=== PATIENT | female | born 1965 | race Caucasian/White ===

== ENCOUNTER → 2018-07-18 | Day surgery (SDC) | payer OTHER ==
[2018-07-14 12:35] LABS: BASOPHILS # (AUTO) 0.1 (0.0-0.1); BASOPHILS % 0.6 % (0.0-1.0); EOSINOPHILS # (AUTO) 0.3 (0.0-0.4); HEMATOCRIT 42.1 % (34.2-44.1); HEMOGLOBIN 13.5 g/dL (12.0-16.0); LYMPHOCYTES # (AUTO) 3.9 (1.0-3.2); LYMPHOCYTES % 29.4 % (18.0-39.1); MEAN CORPUSCULAR HEMOGLOBIN 27.4 pg (28-32); MEAN CORPUSCULAR HGB CONC 32.1 g/dL (31-35); MEAN CORPUSCULAR VOLUME 85.4 fL (81-99); MONOCYTES # (AUTO) 0.7 (0.2-0.8); NEUTROPHILS # (AUTO) 8.4 (2.1-6.9); NEUTROPHILS % 62.7 % (38.7-80.0); PLATELET COUNT 389 x10e3/uL (140-360); RED BLOOD COUNT 4.93 x10e6/uL (3.6-5.1); RED CELL DISTRIBUTION WIDTH 13.1 % (11.7-14.4)
[2018-07-14 12:57] LABS: ALANINE AMINOTRANSFERASE 23 IU/L (0-55); ALBUMIN 3.4 g/dL (3.5-5.0); ALKALINE PHOSPHATASE 150 IU/L (40-150); ANION GAP 15.7 mmol/L (8-16); BLOOD UREA NITROGEN 9 mg/dL (7-26); BUN/CREATININE RATIO 11 (6-25); CALCIUM 9.6 mg/dL (8.4-10.2); CARBON DIOXIDE 24 mmol/L (22-29); CHLORIDE 101 mmol/L (98-107); CREATININE, SERUM 0.82 mg/dL (0.57-1.11); EST GLOMERULAR FILTRATION RATE > 60 ML/MIN (60-); GLUCOSE 268 mg/dL (74-118); POTASSIUM 3.7 mmol/L (3.5-5.1); SODIUM 137 mmol/L (136-145)
[~2018-07-18] MED LIST: ACETAMINOPHEN 1000 MG/100 ML IV ONE; BUPIVACAINE HCL 0.5% INJ 30 ML VIAL INJ ONE; CEFAZOLIN SOD 2 GM/D5W 50ML 50 ML IV ONE; DEXAMETHASONE SOD PHOS INJ 4 MG/ML VIAL ONE; DEXILANT60 MG PO; FENTANYL CITRATE/PF 100MCG/2 ML INJ ONE; GABAPENTIN300 MG PO; HYDROMORPHONE 2MG/ML 2 MG/ML ML ONE; INSULIN REGULAR, HUMAN 100 UNIT/1 ML 3ML VIAL ONE; KRISTALOSE20 GM PO; LIDOCAINE HCL 2% LOCAL INJ 5 ML SDV VIAL INJ ONE; LIPITOR20 MG PO; LISINOPRIL2.5 MG PO; METFORMIN HCL500 MG PO; MIDAZOLAM HCL 2 MG/2 ML VIAL ONE; NIACOR500 MG PO; ONDANSETRON HCL INJ 2MG/ML 2ML 2 MG/ML VIAL ONE; PROPOFOL IV EMULSION 10 MG/ML 20 ML VIAL ONE; REGLAN10 MG PO; ROCURONIUM BROMIDE 10 MG/ML 5ML VIAL ONE; SEVOFLURANE INHAL SOLN 250 ML PEN BTL ONE; TRULANCE PO; TRULICITY INJ; ULTRAM50 MG PO
--- OUTSIDE RECORDS SUMMARY | 2018-07-18 07:08 | XMS REPORT | Clinical Summary ---
Author Author [facility] Organization [facility] Address Unknown Phone Unavailable Care Team Providers Care Psychiatric Clinician Name Role Phone Ayden Michaud MD PCP Allergies Comments Active Allergy Reactions Severity Noted Date Beeswax 10/22/2017 Medications End Date Status Medication Sig Dispensed Refills Start Date Active ergocalciferol (VITAMIN Take 50,000 0 D2) 50,000 unit capsule Units by mouth once a week. Takes om Tuesday Active atorvastatin (LIPITOR) 20 Take 20 mg by 0 MG tablet mouth nightly. Default OP ins Active metFORMIN (GLUCOPHAGE) Take 2,000 mg 0 500 mg tablet by mouth nightly. Active gabapentin (NEURONTIN) Take 300 mg 0 300 mg capsule by mouth nightly. Active dexlansoprazole Take 60 mg by 0 (DEXILANT) 60 mg capsule mouth daily. TAKE IN THE MORNING Active methocarbamol (ROBAXIN) TAKE 1 TABLET 90 tablet 0 500 MG tablet BY MOUTH FOUR 9 TIMES DAILY 10/25/2017 Discontinued lisinopril Take 5 mg by 0 (PRINIVIL,ZESTRIL) 5 mg mouth tablet nightly. 11/24/2017 lisinopril Take 4 30 tablet 0 (PRINIVIL,ZESTRIL) 5 mg tablets (20 8 tablet mg total) by mouth nightly for 30 days. 11/08/2017 HYDROcodone-acetaminophen Take 1 tablet 0 (NORCO) 10-325 mg per by mouth 8 tablet every 6 (six) hours as needed for severe pain for up to 14 days. Max Daily Amount: 4 tablets 11/24/2017 glimepiride (AMARYL) 1 MG Take 1 tablet 30 tablet 0 tablet (1 mg total) 8 by mouth daily before breakfast for 30 days. 11/14/2017 traMADol (ULTRAM) 50 mg Take 1 tablet 40 tablet 0 tablet (50 mg total) 8 by mouth every 4 (four) hours as needed for moderate pain for up to 20 days. 11/24/2017 cyclobenzaprine Take 1 tablet 30 tablet 0 (FLEXERIL) 5 mg tablet (5 mg total) 8 by mouth 3 (three) times a day as needed for muscle spasms for up to 30 days. 12/14/2017 traMADol (ULTRAM) 50 mg Take 1 tablet 70 tablet 0 tabletIndications: Left (50 mg total) 8 wrist pain by mouth every 4 (four) hours as needed for moderate pain for up to 30 days. 12/14/2017 cyclobenzaprine Take 1 tablet 60 tablet 0 (FLEXERIL) 5 mg (5 mg total) 8 tabletIndications: Left by mouth 3 wrist pain (three) times a day as needed for muscle spasms for up to 30 days. 01/18/2018 Discontinued traMADol (ULTRAM) 50 mg Take 1 tablet 40 tablet 0 tabletIndications: Left (50 mg total) 8 wrist pain, Left elbow by mouth pain every 6 (six) hours as needed for moderate pain for up to 30 days. 01/18/2018 Discontinued methocarbamol (ROBAXIN) Take 1 tablet 90 tablet 0 500 MG tabletIndications: (500 mg 8 Left wrist pain, Left total) by elbow pain mouth 4 (four) times a day for 30 days. 02/17/2018 traMADol (ULTRAM) 50 mg Take 1 tablet 40 tablet 0 tabletIndications: Left (50 mg total) 8 wrist pain, Left elbow by mouth pain every 6 (six) hours as needed for moderate pain for up to 30 days. 02/17/2018 methocarbamol (ROBAXIN) Take 1 tablet 90 tablet 0 500 MG tabletIndications: (500 mg 8 Left wrist pain, Left total) by elbow pain mouth 4 (four) times a day for 30 days. 03/10/2018 traMADol (ULTRAM) 50 mg Take 1 tablet 40 tablet 0 tabletIndications: Left (50 mg total) 8 wrist pain by mouth every 6 (six) hours as needed for moderate pain for up to 30 days. 03/31/2018 methocarbamol (ROBAXIN) Take 1 tablet 90 tablet 0 500 MG tabletIndications: (500 mg 8 Right wrist pain total) by mouth 4 (four) times a day for 30 days. 03/31/2018 traMADol (ULTRAM) 50 mg Take 1 tablet 40 tablet 0 tabletIndications: Right (50 mg total) 8 wrist pain by mouth every 6 (six) hours as needed for moderate pain for up to 30 days. 05/12/2018 traMADol (ULTRAM) 50 mg Take 1 tablet 40 tablet 0 tablet (50 mg total) 8 by mouth every 6 (six) hours as needed for moderate pain for up to 30 days. 05/20/2018 traMADol (ULTRAM) 50 mg Take 1 tablet 40 tablet 0 tablet (50 mg total) 8 by mouth every 6 (six) hours as needed for moderate pain for up to 30 days. 06/07/2018 Discontinued methocarbamol (ROBAXIN) Take 1 tablet 90 tablet 0 500 MG tablet (500 mg 9 total) by mouth 4 (four) times a day for 23 days. 07/14/2018 traMADol (ULTRAM) 50 mg Take 1 tablet 40 tablet 0 tablet (50 mg total) 9 by mouth every 6 (six) hours as needed for moderate pain for up to 30 days. 07/14/2018 methocarbamol (ROBAXIN) Take 1 tablet 90 tablet 0 500 MG tablet (500 mg 9 total) by mouth 4 (four) times a day for 30 days. 07/15/2018 traMADol (ULTRAM) 50 mg Take 1 tablet 40 tablet 0 tablet (50 mg total) 9 by mouth every 6 (six) hours as needed for moderate pain for up to 30 days. Active Problems Problem Noted Date Closed fracture of left distal radius and ulna 10/21/2017 Bilateral carpal tunnel syndrome Encounters Care Team Description Date Type Specialty Sammy Gaitan MD 07/05/2018 Refill Orthopedic Surgery Sammy Gaitan MD Left wrist pain (Primary Dx) 06/14/2018 Office Visit Orthopedic Surgery Sammy Gaitan MD 06/07/2018 Refill Orthopedic Surgery Alisa Lopez MA 05/17/2018 Orders Only Orthopedic Surgery Sammy Gaitan MD Left wrist pain (Primary Dx) 05/03/2018 Office Visit Orthopedic Surgery Alisa Lopez MA 04/20/2018 Orders Only Orthopedic Surgery Alisa Lopez MA 04/12/2018 Orders Only Orthopedic Surgery Sammy Gaitan MD Right wrist pain (Primary Dx) 03/01/2018 Office Visit Orthopedic Surgery Alisa Lopez MA Left wrist pain (Primary Dx) 02/08/2018 Orders Only Orthopedic Surgery Sammy Gaitan MD Left wrist pain (Primary Dx); Left elbow pain; Closed fracture of distal ends of left radius and ulna, initial encounter 01/18/2018 Office Visit Orthopedic Surgery Sammy Gaitan MD Left wrist pain (Primary Dx); Left elbow pain; Numbness and tingling in left upper extremity; Closed fracture of distal ends of left radius and ulna, initial encounter 12/21/2017 Office Visit Orthopedic Surgery Sammy Gaitan MD Left wrist pain (Primary Dx); Closed fracture of distal ends of left radius and ulna, initial encounter 11/14/2017 Office Visit Orthopedic Surgery Sammy Gaitan MD Left hand pain (Primary Dx); Closed fracture of distal ends of left radius and ulna, initial encounter 11/02/2017 Office Visit Orthopedic Surgery Barbie Alcantar MD 10/24/2017 Anesthesia Orthopedic Surgery Event Sammy Gaitan MD ORIF, FRACTURE, RADIUS, DISTAL 10/24/2017 Surgery Orthopedic Surgery Rehrer, DO Daryl Foote Joseph M., MD Closed fracture of distal ends of left radius and ulna, initial encounter (Primary Dx) 10/21/2017 Hospital Orthopedic Surgery - Encounter 10/25/2017 after 07/17/2017 Family History Medical History Relation Name Comments Cancer Father Heart disease Mother Arthritis Sister Relation Name Status Comments Father Mother Sister Social History Date Tobacco Use Types Packs/Day Years Used Former Smoker Cigarettes Smokeless Tobacco: Former User Alcohol Use Drinks/Week oz/Week Comments No Sex Assigned at Date Recorded Not on file Industry Job Start Date Occupation Not on file Not on file Not on file Travel End Travel History Travel Start No recent travel history available. Last Filed Vital Signs Time Taken Vital Sign Reading 10/25/2017 9:12 AM CDT Blood Pressure 162/52 10/25/2017 9:12 AM CDT Pulse 96 10/25/2017 7:21 AM CDT Temperature 37.5 C (99.5 F) 10/25/2017 7:21 AM CDT Respiratory Rate 18 10/25/2017 9:12 AM CDT Oxygen Saturation 95% - Inhaled Oxygen - Concentration 10/21/2017 5:37 PM CDT Weight 83.9 kg (185 lb) 10/21/2017 5:37 PM CDT Height 154.9 cm (5' 1") 10/21/2017 5:37 PM CDT Body Mass Index 34.96 Plan of Treatment Health Maintenance Due Date Last Done Comments CERVICAL CANCER SCREENING 1986 BREAST CANCER SCREENING 2015 COLON CANCER SCREENING 2015 SHINGLES VACCINES (#1) 2015 INFLUENZA VACCINE 11/23/2017 Implants Device Identifier Shelf Expiration Date Model / Serial / Lot Implanted Type 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 [id number] / / Bone Screw T8 Full Thread 2.7mm / IPM Left: Wrist TOMAS L12mm - [id number] [employer] Implanted: Qty: 3 on 10/24/2017 by DEVICES Sammy Nathan MD [id number] / / Bone Screw T8 Full Thread 2.7mm / IPM Left: Wrist TOMAS L18mm - [id number] [employer] Implanted: Qty: 1 on 10/24/2017 by DEVICES Sammy Nathan MD [id number] / / Locking Screw T8 Full Thread 2.7mm IPM Left: Wrist TOMAS / L16mm - [id number] [employer] Implanted: Qty: 2 on 10/24/2017 by DEVICES Sammy Nathan MD [id number] / / Locking Screw T8 Full Thread 2.7mm IPM Left: Wrist TMOAS / L18mm - [id number] [employer] Implanted: Qty: 1 on 10/24/2017 by DEVICES Sammy Nathan MD [id number] / / Locking Screw T8 Full Thread 2.7mm IPM Left: Wrist TOMAS / L20mm - [id number] [employer] Implanted: Qty: 1 on 10/24/2017 by DEVICES Sammy Nathan MD [id number] / / Locking Screw T8 Full Thread 2.7mm IPM Left: Wrist TOMAS / L22mm - [id number] [employer] Implanted: Qty: 1 on 10/24/2017 by DEVICES Sammy Nathan MD [id number] / / Volar Dr Plate Narrow Left 8 Holes IPM Left: Wrist TOMAS Extrashort - [id number] [employer]PLANT [employer] Implanted: Qty: 1 on 10/24/2017 by DEVICES Sammy Nathan MD [id number] / / Wire K [id number] [employer] - Orthopedic Left: Wrist TOMAS [id number] Trauma [employer]TH[employer] Implanted: Qty: 2 on 10/24/2017 by Implants Sammy Nathan MD Procedures Comments Procedure Name Priority Date/Time Associated Diagnosis EMG Routine 12/30/2017 Numbness and tingling in 11:26 AM CDT left upper extremity POC GLUCOSE Routine 10/25/2017 11:41 AM CDT POC GLUCOSE Routine 10/25/2017 7:14 AM CDT ZZESTIMATED GFR Routine 10/25/2017 4:30 AM CDT BASIC METABOLIC PANEL Routine 10/25/2017 4:30 AM CDT HC COMPLETE BLD COUNT Routine 10/25/2017 W/AUTO DIFF 4:30 AM CDT POC GLUCOSE Routine 10/24/2017 9:17 PM CDT POC GLUCOSE Routine 10/24/2017 5:20 PM CDT WV AN ELECTIVE Routine 10/24/2017 SUPRAGLOTTIC AIRWAY 2:53 PM CDT Procedure Note - Nixon Silva CRNA - 10/24/2017 2:53 PM CDT Airway Performed by: NIXON SILVA Authorized by: BARBIE ALCANTAR Location: OR Urgency: Elective Difficult Airway: No Resident/C RNA/AA: NIXON SILVA Performed by: resident/C RNA/AA Preoxygena yahir with 100% O2: Yes Mask Ventilatio n: Not attempted Final Airway Type: Supraglott ic airway Final LMA: I-Gel LMA Size: 4 Number of Attempts at Approach: 1 Pt. Preoxygena yahir for 3 minutes. Eyes taped closed after induction. iGel #4 placed atraumatic ally and secured. No leak at 15 cmH2O positive pressure. +ETCO, + bilateral breath sounds. ORIF, FRACTURE, RADIUS, 10/24/2017 Closed fracture of distal DISTAL 1:30 PM CDT ends of left radius and ulna, initial encounter POC GLUCOSE Routine 10/24/2017 1:15 PM CDT POC GLUCOSE Routine 10/24/2017 8:21 AM CDT TYPE AND SCREEN Routine 10/24/2017 5:15 AM CDT PARTIAL THROMBOPLASTIN Routine 10/24/2017 TIME (PTT) 5:15 AM CDT PROTHROMBIN TIME WITH INR Routine 10/24/2017 5:15 AM CDT HC COMPLETE BLD COUNT Routine 10/24/2017 W/AUTO DIFF 5:15 AM CDT ZZESTIMATED GFR Routine 10/24/2017 5:10 AM CDT BASIC METABOLIC PANEL Routine 10/24/2017 5:10 AM CDT POC GLUCOSE Routine 10/23/2017 10:01 PM CDT POC GLUCOSE Routine 10/23/2017 4:35 PM CDT POC GLUCOSE Routine 10/23/2017 12:16 PM CDT POC GLUCOSE Routine 10/23/2017 7:21 AM CDT POC GLUCOSE Routine 10/22/2017 9:30 PM CDT POC GLUCOSE Routine 10/22/2017 5:04 PM CDT POC GLUCOSE Routine 10/22/2017 11:31 AM CDT POC GLUCOSE Routine 10/22/2017 8:51 AM CDT ECG PRE/POST OP Routine 10/22/2017 8:26 AM CDT HEMOGLOBIN A1C Routine 10/22/2017 7:15 AM CDT HC COMPLETE BLD COUNT Routine 10/22/2017 W/AUTO DIFF 7:15 AM CDT ZZESTIMATED GFR Routine 10/22/2017 7:07 AM CDT MAGNESIUM LEVEL Routine 10/22/2017 7:07 AM CDT BASIC METABOLIC PANEL Routine 10/22/2017 7:07 AM CDT THYROID STIMULATING Routine 10/22/2017 HORMONE 6:30 AM CDT XR WRIST 3+ VW LEFT STAT 10/21/2017 8:11 PM CDT ZZESTIMATED GFR STAT 10/21/2017 6:53 PM CDT BASIC METABOLIC PANEL STAT 10/21/2017 6:53 PM CDT PARTIAL THROMBOPLASTIN STAT 10/21/2017 TIME (PTT) 6:53 PM CDT PROTHROMBIN TIME WITH INR STAT 10/21/2017 6:53 PM CDT HC COMPLETE BLD COUNT STAT 10/21/2017 W/AUTO DIFF 6:53 PM CDT XR ELBOW 2 VW LEFT STAT 10/21/2017 6:46 PM CDT XR WRIST 3+ VW LEFT STAT 10/21/2017 6:46 PM CDT XR FOREARM 2 VW LEFT STAT 10/21/2017 6:45 PM CDT WV APPLY FOREARM Routine 10/21/2017 SPLINT,STATIC 5:54 PM CDT WV CLOSED RX DIST Routine 10/21/2017 RAD/ULNA FX,MANIPUL 5:54 PM CDT WV APPLY FOREARM Routine 10/21/2017 SPLINT,STATIC 5:54 PM CDT WV MODERATE SEDATJ SAME Routine 10/21/2017 PHYS/QHP 5/>YRS INIT 30 5:54 PM CDT MIN after 07/17/2017 Results * EMG General Request (12/30/2017 11:26 AM CDT) Impressions Performed At The patient has numbness in the left hand and has had a prior fracture. She comes in for an EMG study. 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 [facility] Department of Neurology [place] [address] Office: [phone] Narrative Performed At NERVE CONDUCTION AND ELECTROMYOGRAPHY REPORT [facility] Medicine [facility]-[address] Floor; [place], [place] [address]; Name: Lidia Prescott Date of Procedure: 12/30/17 Sex: female Date of : 1965 Referring Physician: Marielle Gaitan MD Ht: 5 foot 1Wt: 175 Temp:33/32.4 Nerve Conduction(Latencies in msec, Amplitudes uV, Distance cm, Velocity M/Sec) Right Motor Nerves Dist. Lat. Prox lat. D. amp. P. Amp.Dist. Velocity Right Median3.67.38.8 8.819 51 Right Ulnar (below elb) Right Ulnar (across elb) Right Radial Right Median F Wave 37.3 Right Ulnar F Wave Right Sensory Nerves Dist. Lat. Prox lat. Dist. amp. Prox Amp. Distance Velocity Right Median Palmar 2.4 53 8.0 Right Median Digital 3.2 16.7 13.0 Right Ulnar11.0 Right Super. Radial 10.0 Left Motor Nerves Dist. Lat. Prox lat. D. amp. P. Amp.Dist. Velocity Left Median4.47.84.3 4.320 59 Left Ulnar (below elb) 2.84.76.2 6.210.5 55 Left Ulnar (across elb) 7.2 6.213 52 Left Radial2.96.64.5 4.025 68 Left Median F Wave 25 Left Ulnar F Wave 36.2 Left Sensory Nerves Dist. Lat. Prox lat. Dist. amp. Prox Amp. Distance Velocity Left Median Palmar 2.8* 19.3 8.0 Left Median Digital 3.6 6.7 13.0 Left Ulnar3.0 16.3 11.0 Left Super. Radial 2.8 21 10.0 Electromyography (Motor Unit in mV; H=High; L=Low; P=Polyphasic; NS=Non-specific) Left ArmFibs. Pos. Waves Fasc. PolyphasiaMotor UnitsRecruitment Deltoid wnl wnlwnl wnlwnlwnl Biceps wnl wnlwnl wnlwnlwnl Triceps wnl wnlwnl wnlwnlwnl Brachioradialis wnl wnlwnl wnlwnlwnl lst D. Interosseous wnl wnlwnl wnlwnlwnl Abd. Pollicus b. wnl wnlwnl wnlwnllve * POC glucose (10/25/2017 11:41 AM CDT) Only the most recent of 14 results within the time period is included. POC glucose 205 (H) 65 - 99 mg/dL [facility] DEPARTMENT OF Comment: PATHOLOGY AND [facility] Notified RN GENOMIC MEDICINE Meter ID: [id number] Job Honer: Agapito Randle Address City/State/Zipcode Phone Number [facility] DEPARTMENT OF [address] [place] [address] PATHOLOGY AND GENOMIC MEDICINE * Estimated GFR (10/25/2017 4:30 AM CDT) Only the most recent of 4 results within the time period is included. GFR Non Af Amer >90 mL/min/1.73 m2 [facility] DEPARTMENT OF PATHOLOGY AND GENOMIC MEDICINE GFR Af Amer >90 mL/min/1.73 m2 [facility] DEPARTMENT OF Comment: PATHOLOGY AND Chronic kidney disease: <60 GENOMIC MEDICINE mL/min/1.73m2 Kidney failure: <15 mL/min/1.73m2 The estimated GFR is calculated from the IDMS-traceable Modification of Diet in Renal Disease Equation. The accuracy of the calculation is poor when the creatinine is normal. Calculated values >90 mL/min/1.73m2 are not reported. This equation has not been validated in children (<18 years), women, the elderly (>70 years), or ethnic groups other than Caucasians and Americans. Specimen Plasma specimen Performing Organization Address City/State/Zipcode Phone Number [facility] DEPARTMENT OF [address] [place] [address] PATHOLOGY AND GENOMIC MEDICINE * CBC with platelet and differential (10/25/2017 4:30 AM CDT) Only the most recent of 4 results within the time period is included. WBC 13.36 (H) 4.50 - 11.00 k/uL [facility] DEPARTMENT OF PATHOLOGY AND GENOMIC MEDICINE RBC 4.12 (L) 4.20 - 5.50 m/uL [facility] DEPARTMENT OF PATHOLOGY AND GENOMIC MEDICINE HGB 11.7 (L) 12.0 - 16.0 g/dL [facility] DEPARTMENT OF PATHOLOGY AND GENOMIC MEDICINE HCT 35.9 (L) 37.0 - 47.0 % [facility] DEPARTMENT OF PATHOLOGY AND GENOMIC MEDICINE MCV 87.1 82.0 - 100.0 fL [facility] DEPARTMENT OF PATHOLOGY AND GENOMIC MEDICINE MCH 28.4 27.0 - 34.0 pg [facility] DEPARTMENT OF PATHOLOGY AND GENOMIC MEDICINE MCHC 32.6 31.0 - 37.0 g/dL [facility] DEPARTMENT OF PATHOLOGY AND GENOMIC MEDICINE RDW - SD 41.0 37.0 - 55.0 fL [facility] DEPARTMENT OF PATHOLOGY AND GENOMIC MEDICINE MPV 10.8 8.8 - 13.2 fL [facility] DEPARTMENT OF PATHOLOGY AND GENOMIC MEDICINE Platelet count 328 150 - 400 k/uL [facility] DEPARTMENT OF PATHOLOGY AND GENOMIC MEDICINE Nucleated RBC 0.00 /100 WBC [facility] DEPARTMENT OF PATHOLOGY AND GENOMIC MEDICINE Neutrophils 63.1 39.0 - 69.0 % [facility] DEPARTMENT OF PATHOLOGY AND GENOMIC MEDICINE Lymphocytes 25.4 25.0 - 45.0 % [facility] DEPARTMENT OF PATHOLOGY AND GENOMIC MEDICINE Monocytes 9.1 0.0 - 10.0 % [facility] DEPARTMENT OF PATHOLOGY AND GENOMIC MEDICINE Eosinophils 1.6 0.0 - 5.0 % [facility] DEPARTMENT OF PATHOLOGY AND GENOMIC MEDICINE Basophils 0.5 0.0 - 1.0 % [facility] DEPARTMENT OF PATHOLOGY AND GENOMIC MEDICINE Immature granulocytes 0.3Comment: "Immature 0.0 - 1.0 % [facility] DEPARTMENT OF granulocytes" (promyelocytes, PATHOLOGY AND myelocytes, metamyelocytes) GENOMIC MEDICINE Specimen Blood Performing Organization Address [facility] [place] [address] PATHOLOGY AND [employer] MEDICINE * Basic metabolic panel (10/25/2017 4:30 AM CDT) Only the most recent of 4 results within the time period is included. Sodium 140 135 - 148 mEq/L [facility] DEPARTMENT OF PATHOLOGY AND GENOMIC MEDICINE Potassium 3.2 (L) 3.5 - 5.0 mEq/L [facility] DEPARTMENT OF PATHOLOGY AND GENOMIC MEDICINE Chloride 98 98 - 112 mEq/L [facility] DEPARTMENT OF PATHOLOGY AND GENOMIC MEDICINE CO2 29 24 - 31 mEq/L [facility] DEPARTMENT OF PATHOLOGY AND GENOMIC MEDICINE Anion gap 13@ANIO 7 - 15 mEq/L [facility] DEPARTMENT OF PATHOLOGY AND GENOMIC MEDICINE BUN 10 6 - 20 mg/dL [facility] DEPARTMENT OF PATHOLOGY AND GENOMIC MEDICINE Creatinine 0.6 0.5 - 0.9 mg/dL [facility] DEPARTMENT OF PATHOLOGY AND GENOMIC MEDICINE Glucose 122 (H) 65 - 99 mg/dL [facility] DEPARTMENT OF PATHOLOGY AND GENOMIC MEDICINE Calcium 8.9 8.3 - 10.2 mg/dL [facility] DEPARTMENT OF PATHOLOGY AND GENOMIC MEDICINE Specimen Plasma specimen Performing Organization Address [facility] [place] [facility] DEPARTMENT [place] [phone] PATHOLOGY AND [employer] MEDICINE * Partial thromboplastin time, activated (10/24/2017 5:15 AM CDT) Only the most recent of 2 results within the time period is included. PTT 33.5 23.0 - 36.0 sec [facility] DEPARTMENT OF Comment: PATHOLOGY AND PTT therapeutic range for [facility] MEDICINE unfractionated heparin is 61.0-112.0 seconds which corresponds to Anti-Xa 0.3-0.7 U/ml. Specimen Blood Performing Organization Address City/[facility] [place] [address] PATHOLOGY AND [employer] MEDICINE * Prothrombin time with INR (10/24/2017 5:15 AM CDT) Only the most recent of 2 results within the time period is included. Prothrombin time 12.5 12.0 - 15.0 sec [facility] DEPARTMENT OF PATHOLOGY AND GENOMIC MEDICINE INR 0.9 [facility] DEPARTMENT OF Comment: PATHOLOGY AND The International Normalized [facility] MEDICINE Ratio (INR) is a therapeutic monitoring tool for patients who are stable on oral anticoagulant therapy. An INR of 2.0-3.0 is suggested for deep vein thrombosis/pulmonary embolism. Specimen Blood Performing Organization Address City/[facility] Phone Number [facility] DEPARTMENT OF [address] [place] [address] PATHOLOGY AND GENOMIC MEDICINE * Type and screen (10/24/2017 5:15 AM CDT) ABO grouping O [facility] DEPARTMENT OF PATHOLOGY AND GENOMIC MEDICINE Rh type POS [facility] DEPARTMENT OF PATHOLOGY AND GENOMIC MEDICINE Antibody screen (gel) NEG [facility] DEPARTMENT OF PATHOLOGY AND GENOMIC MEDICINE Specimen Blood Performing Organization Address [facility] Phone Number [facility] DEPARTMENT [place] [phone] PATHOLOGY AND GENOMIC MEDICINE * ECG Pre/Post Op (10/22/2017 8:26 AM CDT) Ventricular rate 86 [facility] M[facility] Atrial rate 86 [facility] MUSE WV interval 174 [facility] QRSD interval 86 [facility] QT interval 400 [facility] QTC interval 478 [facility] MUSE P axis 1 57 [facility] QRS axis 1 -15 [facility] MUSE T wave axis 23 [facility]USE EKG impression Normal sinus rhythm-Normal [facility] ECG-No previous ECGs available- Performing Organization Address City/[facility]/Zipcode Phone Number [facility] MUSE [address] [place] [phone] * Hemoglobin A1c (10/22/2017 7:15 AM CDT) Hemoglobin A1C 8.1 (H) 4.0 - 5.6 % [facility] DEPARTMENT OF Comment: PATHOLOGY AND HbA1c cutoffs for diagnosing GENOMIC MEDICINE diabetes: 4.0% - 5.6%=normal 5.7% - 6.4%=increased risk for diabetes (prediabetes) >=6.5%=diabetes Goals for glycemic control (ADA 2016) < 7.0%Target for non adults with diabetes. More or less stringent targets may be appropriate for individual patients. <7.5% Target for Children and adolescents with type 1 diabetes. Specimen Blood Performing Organization Address City/[facility]/Zipcode Phone Number [facility] [place] [address] PATHOLOGY AND GENOMIC MEDICINE * Magnesium level (10/22/2017 7:07 AM CDT) Magnesium 1.6 1.6 - 2.6 mg/dL [facility] DEPARTMENT OF PATHOLOGY AND GENOMIC MEDICINE Specimen Plasma specimen Performing Organization Address [facility]ercode Phone Number [facility] [place] [address] PATHOLOGY AND GENOMIC MEDICINE * Thyroid stimulating hormone (10/22/2017 6:30 AM CDT) TSH 2.07 0.27 - 4.20 uIU/mL [facility] DEPARTMENT OF PATHOLOGY AND GENOMIC MEDICINE Specimen Plasma specimen Performing Organization Address [facility] [place] Number [facility] [place] [address] PATHOLOGY AND [facility] MEDICINE * XR Wrist 3+ Vw Left (10/21/2017 8:11 PM CDT) Only the most recent of 2 results within the time period is included. Narrative Performed At EXAMINATION:XR WRIST 3VW LEFT RADIANT CLINICAL HISTORY:Post-reduction COMPARISON:To previous study from 1815 hours IMPRESSION: A markedly comminuted fracture of the distal radial metaphysis and epiphysis has been partially reduced. Styloid chip fracture is present. Overlying plaster splint is present. [facility]-[id number] Procedure Note Interface, Radiology Results Incoming - 10/21/2017 8:27 PM CDT EXAMINATION: XR WRIST 3 VW LEFT CLINICAL HISTORY: Post-reduction COMPARISON: To previous study from 1815 hours IMPRESSION: A markedly comminuted fracture of the distal radial metaphysis and epiphysis has been partially reduced. Styloid chip fracture is present. Overlying plaster splint is present. [facility]-[id number] Performing Organization Address [facility] Centercode Phone Number RADIANT [address] [place] [address] * XR Elbow 2 Vw Left (10/21/2017 6:46 PM CDT) Narrative Performed At Procedure:XR ELBOW 2 VW LEFT RADIANT REFERRING PHYSICIAN: RICHARD JOSEPH REHRER HISTORY:fall COMPARISON: None FINDINGS: No evidence of fracture or dislocation is seen. The joint spaces are maintained. No osteolytic or osteoblastic lesion is identify. Regional soft tissue is unremarkable. No radiopaque foreign body is seen. XR ELBOW 2 VW LEFTacquired. IMPRESSION: No radiographic evidence of acute fracture or dislocation of the left elbow. [id number] Procedure Note Interface, Radiology Results Incoming - 10/21/2017 6:52 PM CDT Procedure:XR ELBOW 2 VW LEFT REFERRING PHYSICIAN: RICHARD RUIZ REHRER HISTORY: fall COMPARISON: None FINDINGS: No evidence of fracture or dislocation is seen. The joint spaces are maintained. No osteolytic or osteoblastic lesion is identify. Regional soft tissue is unremarkable. No radiopaque foreign body is seen. XR ELBOW 2 VW LEFT acquired. IMPRESSION: No radiographic evidence of acute fracture or dislocation of the left elbow. [id number] Performing Organization Address [facility] Centercoky Phone Number QuirkyANT [address] [place] [address] * XR Forearm 2 Vw Left (10/21/2017 6:45 PM CDT) Narrative Performed At EXAMINATION: RADIANT XR FOREARM 2 VW LEFT CLINICAL HISTORY: fall COMPARISON: None. FINDINGS: A comminuted, mostly transverse, distal radial fracture seen. Dorsal displacement with volar angulation of the major fracture fragments is seen. A longitudinal component extends intra-articularly. There is minimal separation of the articular surfaces. The ulnar styloid is fractured at its base. Carpal bones are intact. IMPRESSION: Comminuted fracture the distal radius with associated ulnar styloid fracture.. [id number] Procedure Note Interface, Radiology Results Incoming - 10/21/2017 6:53 PM CDT EXAMINATION: XR FOREARM 2 VW LEFT CLINICAL HISTORY: fall COMPARISON: None. FINDINGS: A comminuted, mostly transverse, distal radial fracture seen. Dorsal displacement with volar angulation of the major fracture fragments is seen. A longitudinal component extends intra-articularly. There is minimal separation of the articular surfaces. The ulnar styloid is fractured at its base. Carpal bones are intact. IMPRESSION: Comminuted fracture the distal radius with associated ulnar styloid fracture.. [id number] Performing Organization Address [facility] Centercode Phone Number QuirkyANT [address] [place] [address] * ED MODERATE PROCEDURAL SEDATION (10/21/2017 5:54 PM CDT) Narrative Performed At [place] Joseph Saucedo DO 10/23/2017 11:14 PM Procedural Sedation (Moderate/Deep) Performed by: RICHARD SAUCEDO Authorized by: RICHARD SAUCEDO Consent: Consent obtained:Written Consent given by:Patient Risks discussed:Allergic reaction, dysrhythmia, inadequate sedation, nausea, vomiting, respiratory compromise necessitating ventilatory assistance and intubation, prolonged sedation necessitating reversal and prolonged hypoxia resulting in organ damage [place] protocol: Procedure explained and questions answered to patient or proxy's satisfaction: yes Relevant documents present and verified: yes Test results available and properly labeled: yes Imaging studies available: yes Required blood products, implants, devices, and special equipment available: yes Site/side marked: yes Immediately prior to procedure a time out was called: yes Patient identity confirmation method:Arm band Indications: Sedation purpose:Fracture reduction Pre-sedation assessment: ASA classification: class 1 - normal, healthy patient Neck mobility: normal Mouth openin or more finger widths Thyromental distance:4 finger widths Mallampati score:I - soft palate, uvula, fauces, pillars visible Pre-sedation assessment completed:10/21/2017 7:48 PM Immediate pre-procedure details: Reassessment: Patient reassessed immediately prior to procedure Reviewed: vital signs, relevant labs/tests and NPO status Verified: bag valve mask available, emergency equipment available, intubation equipment available, IV patency confirmed, oxygen available and reversal medications available Procedure details (see MAR for exact dosages): Sedation start time:10/21/2017 7:47 PM Preoxygenation:Nasal cannula Sedation medications:Ketamine and propofol Sedation level: DEEP sedation Intra-procedure monitoring:Blood pressure monitoring, continuous capnometry, frequent LOC assessments, frequent vital sign checks, continuous pulse oximetry and monitoring manager Intra-procedure events: none Reversal agents:None required Sedation end time:10/21/2017 7:53 PM Post-procedure details: Attendance: Constant attendance by certified staff until patient recovered Recovery: Patient returned to pre-procedure baseline Respiratory status:Room air Patient tolerance:Tolerated well, no immediate complications * SPLINT APPLICATION (10/21/2017 5:54 PM CDT) Narrative Performed At [place] Joseph Saucedo DO 10/23/2017 11:14 PM Splint Application Performed by: RICHARD SAUCEDO Authorized by: RICHARD SAUCEDO Consent: Consent obtained:Written Consent given by:Patient Risks discussed:Discoloration, numbness, pain and swelling Alternatives discussed:No treatment [place] protocol: Procedure explained and questions answered to patient or proxy's satisfaction: yes Relevant documents present and verified: yes Imaging studies available: yes Site/side marked: yes Immediately prior to procedure a time out was called: yes Patient identity confirmed:Arm band, hospital-assigned identification number and verbally with patient Pre-procedure details: Sensation:Normal Skin color:Normal Procedure details: Laterality:Left Location:Wrist Wrist:L wrist Splint type:Volar short arm Supplies:Plaster, cotton padding and elastic bandage Post-procedure details: Pain:Improved Sensation:Normal Patient tolerance of procedure:Tolerated well, no immediate complications * ORTHOPEDIC INJURY TREATMENT (10/21/2017 5:54 PM CDT) Narrative Performed At Richardvic Saucedo DO 10/23/2017 11:14 PM Orthopedic Injury Treatment Performed by: RICHARD SAUCEDO Authorized by: RICHARD SAUCEDO Consent: Consent obtained:Written and verbal Consent given by:Patient Risks discussed:Nerve damage, pain and vascular damage Alternatives discussed:No treatment [place] protocol: Procedure explained and questions answered to patient or proxy's satisfaction: yes Relevant documents present and verified: yes Imaging studies available: yes Site/side marked: yes Immediately prior to procedure, a time out was called: yes Patient identity confirmed:Arm band, hospital-assigned identification number and verbally with patient Injury: Injury location:Forearm Forearm injury location:L forearm Forearm fracture type: distal radial Forearm fracture type comment:Distal ulna Pre-procedure assessment: Neurological function: normal Distal perfusion: normal Range of motion: reduced Sedation: Sedation type:Deep Anesthesia (see MAR for exact dosages): Anesthesia method:None Procedure details: Manipulation performed: yes Reduction successful: yes X-ray confirmed reduction: yes Immobilization:Splint Splint type:Volar short arm Supplies used:Plaster, elastic bandage and cotton padding Post-procedure assessment: Neurological function: normal Distal perfusion: normal Range of motion: improved Patient tolerance of procedure:Tolerated well, no immediate complications after 07/17/2017 Insurance Payer Benefit Subscriber ID Type Phone Address Plan / Group [facility] xxxxxxxxx HMO/PPO THCARE CHOICE/CHO ICE + Advance Directives Patient has advance care planning documents on file. For more information, stan reddy contact: [place] [address] [place] [address]
[2018-07-18 11:00] VITALS: BP 137/75
--- NOTE | 2018-07-18 15:33 | Operative Report ---
DATE OF PROCEDURE: 07/18/2018 SURGEON: Ayden Carlson MD PREOPERATIVE DIAGNOSIS: Chronic cholecystitis. POSTOPERATIVE DIAGNOSIS: Chronic cholecystitis. PROCEDURES: Diagnostic laparoscopy, laparoscopic cholecystectomy. DIGITAL FORENSICS EXAMINER: None. ANESTHESIA: General endotracheal. INDICATIONS AND FINDINGS: The patient is a 53-year-old female, who presented with complaints of right upper quadrant abdominal pain. Workup revealed abnormal HIDA scan with ejection fraction of 60%. At surgery, gallbladder was somewhat distended with changes of cholesterolosis. Cystic duct was about 2 mm in diameter. Common bile duct was about 5 mm in diameter. Liver had changes of fatty infiltration, stomach, lower abdomen all appeared normal. TECHNIQUE: After adequate general endotracheal anesthesia with the patient in supine position, the abdomen was prepped and draped in sterile fashion with ChloraPrep solution. Skin in the umbilicus was infiltrated with 0.5% Marcaine. Incision was made in the umbilicus. Abdominal wall was elevated and Veress needle was introduced. Pneumoperitoneum was then created. A 10-mm trocar and cannula were then passed through the umbilical wound. Laparoscopic camera was introduced. Initial laparoscopy revealed some adhesions in the midline involving omentum. Liver had changes of fatty infiltration. A 10-mm trocar and cannula were placed in the epigastrium and two 5 mm trocars and cannulas placed in right upper quadrant. These were placed under direct vision. The fundus of the gallbladder was grasped, retracted superiorly. Neck of the gallbladder was grasped, retracted laterally. Peritoneum over the neck of the gallbladder was incised. The gallbladder cystic duct junction was dissected free. Cystic artery was also dissected free. The neck of the gallbladder was completely dissected free. Cystic artery was divided between hemoclips close to the gallbladder. Cystic duct was also divided between hemoclips with three clips being left on the common bile duct side. The gallbladder was dissected free from the liver using scissors and electrocautery. Once it was entirely free, it was placed into an Endopouch and brought out through the epigastric cannula. There were no stones palpable. Gallbladder bed was inspected for hemostasis, which was seen to be adequate. It was irrigated with saline. All fluid aspirated, inspected for hemostasis, which was seen to be adequate. Instruments and cannulas were then removed. Pneumoperitoneum was evacuated. Wounds were then closed. Fascia in the umbilical and epigastric wound closed with 0 Vicryl. Skin at all wounds closed with rashmi. Sterile dressings were applied to each wound. The patient tolerated the procedure well. Estimated blood loss was 10 mL. There were no complications. All counts were correct. The patient was taken to the recovery room in satisfactory condition. MD MERARI [place]/MODL /[id number] cc: Ayden De La Garza MD
== END | disposition home or self-care (01) ==
LOC: OR 07:06
PROVIDERS: ATTEND Surgery
DX: K81.1 Chronic cholecystitis (principal); I10 Essential (primary) hypertension; E11.9 Type 2 diabetes mellitus without complications; Z01.810 Encounter for preprocedural cardiovascular examination; Z01.812 Encounter for preprocedural laboratory examination; Z79.84 Long term (current) use of oral hypoglycemic drugs
CPT/HCPCS: 36415 ×2; 47562; 80053; 82948; 85025; 88304; 93005; J0131; J0690; J1100; J1170; J2001; J2250; J2405; J2704

== ENCOUNTER 2024-05-23 17:21 | Inpatient (IN) | payer BC, OTHER ==
[~2024-05-23] VITALS: Ht 154.9 cm; Wt 79.4 kg
[~2024-05-23 17:21] MED LIST changes: -ACETAMINOPHEN 1000 MG/100 ML IV ONE; -BUPIVACAINE HCL 0.5% INJ 30 ML VIAL INJ ONE; -CEFAZOLIN SOD 2 GM/D5W 50ML 50 ML IV ONE; -DEXAMETHASONE SOD PHOS INJ 4 MG/ML VIAL ONE; -FENTANYL CITRATE/PF 100MCG/2 ML INJ ONE; -HYDROMORPHONE 2MG/ML 2 MG/ML ML ONE; -INSULIN REGULAR, HUMAN 100 UNIT/1 ML 3ML VIAL ONE; -LIDOCAINE HCL 2% LOCAL INJ 5 ML SDV VIAL INJ ONE; -MIDAZOLAM HCL 2 MG/2 ML VIAL ONE; -ONDANSETRON HCL INJ 2MG/ML 2ML 2 MG/ML VIAL ONE; -PROPOFOL IV EMULSION 10 MG/ML 20 ML VIAL ONE; -ROCURONIUM BROMIDE 10 MG/ML 5ML VIAL ONE; -SEVOFLURANE INHAL SOLN 250 ML PEN BTL ONE
[2024-05-23 17:35] VITALS: RESP 18; TEMP 98.4
[2024-05-23 18:24] LABS: BASOPHILS # (AUTO) 0.1 (0.0-0.1); BASOPHILS % 0.2 % (0.0-1.0); EOSINOPHILS # (AUTO) 0.1 (0.0-0.4); EOSINOPHILS % 0.4 % (0.0-6.0); HEMATOCRIT 33.6 % (34.2-44.1); HEMOGLOBIN 9.8 g/dL (12.0-16.0); LYMPHOCYTES # (AUTO) 1.7 (1.0-3.2); LYMPHOCYTES % 8.1 % (18.0-39.1); MEAN CORPUSCULAR HEMOGLOBIN 27.9 pg (28-32); MEAN CORPUSCULAR HGB CONC 29.2 g/dL (31-35); MEAN CORPUSCULAR VOLUME 95.7 fL (81-99); MONOCYTES # (AUTO) 1.2 (0.2-0.8); MONOCYTES % 5.9 % (4.4-11.3); NEUTROPHILS # (AUTO) 17.2 (2.1-6.9); NEUTROPHILS % 84.9 % (38.7-80.0); PLATELET COUNT 464 x10e3/uL (140-360); RED BLOOD COUNT 3.51 x10e6/uL (3.6-5.1); RED CELL DISTRIBUTION WIDTH 14.6 % (11.7-14.4)
[2024-05-23] MEDS ORDERED: ONDANSETRON HCL INJ 2MG/ML 2ML 2 MG/ML VIAL ONE (18:38)
[2024-05-23 18:39] LABS: ALBUMIN 3.8 g/dL (3.5-5.0); ANION GAP 18.7 mmol/L (8-16); BILIRUBIN,TOTAL 0.3 mg/dL (0.2-1.2); CALCIUM 9.6 mg/dL (8.4-10.2); CREATININE, SERUM 1.19 mg/dL (0.57-1.11); POTASSIUM 3.7 mmol/L (3.5-5.1); TOTAL PROTEIN 7.7 g/dL (6.5-8.1)
[2024-05-23] MEDS: ONDANSETRON HCL INJ 2MG/ML 2ML 2 MG/ML VIAL IV STA (18:43)
[2024-05-23 19:15] VITALS: PULSE 79
[2024-05-23] MEDS ORDERED: SIMETHICONE 80 MG CHEW PO PRN (20:15)
[2024-05-23] MEDS ORDERED: ALBUTEROL/IPRATROPIUM 3 ML NEB NEB PRN (20:15)
[2024-05-23] MEDS ORDERED: METOPROLOL TARTRATE INJ 1 MG/ML VIAL IV PRN (20:15)
[2024-05-23] MEDS ORDERED: DOCUSATE SODIUM 100 MG CAP PO PRN (20:15)
[2024-05-23] MEDS ORDERED: ACETAMINOPHEN 325 MG TAB PO PRN (20:15)
[2024-05-23] MEDS ORDERED: MELATONIN 3 MG TAB PO PRN (20:15)
[2024-05-23] MEDS: Morphine 4mg INJECTION 4 MG/ML INJ IV PRN (20:38)
[2024-05-23] MEDS: SODIUM CHLORIDE 0.9% 1000ML 1,000 ML IV SCH (20:38)
[2024-05-23 20:40] LABS: CHOL/HDL RATIO 3.2 (3.0-3.6)
[2024-05-23 21:00] VITALS: BP 103/66; PULSE 88; RESP 18; TEMP 97.9; TEMP 98; O2SAT 100
[2024-05-23 21:13] VITALS: BP 128/71; PULSE 102; RESP 18; TEMP 98.1; O2SAT 100
[2024-05-23] MEDS ORDERED: SODIUM CHLORIDE 0.9% 250ML 250 ML ONE (22:45)
[2024-05-23] MEDS ORDERED: Vancomycin IV 500 MG ONE (22:45)
[2024-05-23] MEDS ORDERED: Vancomycin IV 1 GM VIAL ONE (22:45)
[2024-05-23] MEDS: Vancomycin IV 1.25 GM in SODIUM CHLORIDE 0.9% 250ML 250 ML IV SCH (23:06)
[2024-05-23] MEDS ORDERED: DEXTROSE 50% SYRINGE 50 ML IV PRN (23:30)
[2024-05-24] VITALS (7 sets, daily range): BP systolic 98–131; BP diastolic 57–97; PULSE 91–104; RESP 17–20; TEMP 98.3–99.8; O2SAT 88–97
[2024-05-24] MEDS: ONDANSETRON HCL INJ 2MG/ML 2ML 2 MG/ML VIAL IV PRN (00:46)
[2024-05-24] MEDS: INSULIN LISPRO 100 UNIT/1 ML 3ML VIAL SQ SCH (00:53)
[2024-05-24 07:00] LABS: BASOPHILS # (AUTO) 0.1 (0.0-0.1); BASOPHILS % 0.5 % (0.0-1.0); EOSINOPHILS # (AUTO) 0.2 (0.0-0.4); EOSINOPHILS % 1.4 % (0.0-6.0); HEMATOCRIT 29.2 % (34.2-44.1); LYMPHOCYTES # (AUTO) 1.8 (1.0-3.2); LYMPHOCYTES % 10.9 % (18.0-39.1); MEAN CORPUSCULAR HGB CONC 30.8 g/dL (31-35); MONOCYTES # (AUTO) 1.3 (0.2-0.8); MONOCYTES % 8.2 % (4.4-11.3); NEUTROPHILS # (AUTO) 12.6 (2.1-6.9); NEUTROPHILS % 78.4 % (38.7-80.0); PLATELET COUNT 421 x10e3/uL (140-360); RED BLOOD COUNT 3.21 x10e6/uL (3.6-5.1); RED CELL DISTRIBUTION WIDTH 14.6 % (11.7-14.4); WHITE BLOOD COUNT 16.01 x10e3/uL (4.8-10.8)
[2024-05-24 07:33] LABS: ALBUMIN 3.1 g/dL (3.5-5.0); ALBUMIN/GLOBULIN RATIO 0.9 (0.8-2.0); ANION GAP 15.7 mmol/L (8-16); BILIRUBIN,TOTAL 0.4 mg/dL (0.2-1.2); CALCIUM 8.5 mg/dL (8.4-10.2); CREATININE, SERUM 0.94 mg/dL (0.57-1.11); POTASSIUM 3.7 mmol/L (3.5-5.1); TOTAL PROTEIN 6.7 g/dL (6.5-8.1)
[2024-05-24] MEDS ORDERED: ONDANSETRON ODT8 MG PO (07:58)
[2024-05-24] MEDS ORDERED: GLIMEPIRIDE4 MG PO (07:58)
[2024-05-24] MEDS ORDERED: POVIDONE IODINE 10% 120 ML BTL EXT PRN (12:00)
[2024-05-24] MEDS: Vancomycin IV 1 GM in SODIUM CHLORIDE 0.9% 250ML 250 ML IV SCH (13:01)
[2024-05-24] MEDS: SODIUM CHLORIDE 0.9% 1000ML 1,000 ML IV SCH (23:46)
[2024-05-25] VITALS: BP 125/70; PULSE 98; RESP 18; TEMP 97.2; O2SAT 99
[2024-05-25 04:00] VITALS: BP 128/72; PULSE 93; RESP 18; TEMP 98.8; O2SAT 98
[2024-05-25 05:22] LABS: BASOPHILS # (AUTO) 0.1 (0.0-0.1); BASOPHILS % 0.8 % (0.0-1.0); EOSINOPHILS # (AUTO) 0.1 (0.0-0.4); EOSINOPHILS % 0.6 % (0.0-6.0); HEMATOCRIT 28.5 % (34.2-44.1); HEMOGLOBIN 8.8 g/dL (12.0-16.0); LYMPHOCYTES # (AUTO) 2.4 (1.0-3.2); LYMPHOCYTES % 14.6 % (18.0-39.1); MEAN CORPUSCULAR HGB CONC 30.9 g/dL (31-35); MEAN CORPUSCULAR VOLUME 90.8 fL (81-99); MONOCYTES # (AUTO) 1.5 (0.2-0.8); MONOCYTES % 9.3 % (4.4-11.3); NEUTROPHILS # (AUTO) 12.2 (2.1-6.9); NEUTROPHILS % 73.9 % (38.7-80.0); PLATELET COUNT 420 x10e3/uL (140-360); RED BLOOD COUNT 3.14 x10e6/uL (3.6-5.1); RED CELL DISTRIBUTION WIDTH 14.7 % (11.7-14.4); WHITE BLOOD COUNT 16.46 x10e3/uL (4.8-10.8)
[2024-05-25 05:36] LABS: INR 1.13; PROTHROMBIN TIME 15.2 seconds (11.9-14.5)
[2024-05-25 05:51] LABS: ALBUMIN 2.9 g/dL (3.5-5.0); ALBUMIN/GLOBULIN RATIO 0.8 (0.8-2.0); ANION GAP 14.8 mmol/L (8-16); BILIRUBIN,TOTAL 0.4 mg/dL (0.2-1.2); CALCIUM 8.1 mg/dL (8.4-10.2); CHOL/HDL RATIO 3.4 (3.0-3.6); CREATININE, SERUM 0.84 mg/dL (0.57-1.11); POTASSIUM 3.8 mmol/L (3.5-5.1); TOTAL PROTEIN 6.4 g/dL (6.5-8.1)
[2024-05-25 06:01] LABS: THYROID STIMULATING HORMONE 1.023 uIU/mL (0.350-4.940)
[2024-05-25 08:35] VITALS: BP 130/87; PULSE 90; RESP 18; TEMP 98.2; O2SAT 96
[2024-05-25] MEDS: SODIUM CHLORIDE 0.9% 1000ML 1,000 ML IV SCH (10:45)
[2024-05-25 11:05] VITALS: BP 138/85; PULSE 90; RESP 15; TEMP 97.2; O2SAT 95
[2024-05-25 16:46] VITALS: BP 126/77; PULSE 91; RESP 15; TEMP 98.1; O2SAT 93
[2024-05-25 20:00] VITALS: BP 125/71; PULSE 93; RESP 18; TEMP 98.5; O2SAT 95
[2024-05-25] MEDS: HYDROCODONE/APAP 5MG-325MG TAB PO PRN (20:42)
[2024-05-25] MEDS: ONDANSETRON HCL INJ 2MG/ML 2ML 2 MG/ML VIAL IV PRN (21:37)
[2024-05-26] VITALS (8 sets, daily range): BP systolic 108–130; BP diastolic 61–78; PULSE 79–92; RESP 16–20; TEMP 97.4–98.5; O2SAT 95–98
[2024-05-26] MEDS ORDERED: NON-FORMULARY MEDICATION INJ SCH (02:45)
[2024-05-26] MEDS ORDERED: VANCOMYCIN 1.25GM/250 ML (PEG) 250 ML IV SCH (03:00)
[2024-05-26] MEDS: Vancomycin IV 1 GM in SODIUM CHLORIDE 0.9% 250ML 250 ML IV SCH (05:24)
[2024-05-26 07:47] LABS: BASOPHILS # (AUTO) 0.1 (0.0-0.1); BASOPHILS % 0.8 % (0.0-1.0); EOSINOPHILS # (AUTO) 0.2 (0.0-0.4); EOSINOPHILS % 1.5 % (0.0-6.0); HEMATOCRIT 28.6 % (34.2-44.1); HEMOGLOBIN 8.9 g/dL (12.0-16.0); LYMPHOCYTES # (AUTO) 1.9 (1.0-3.2); LYMPHOCYTES % 13.1 % (18.0-39.1); MEAN CORPUSCULAR HEMOGLOBIN 27.9 pg (28-32); MEAN CORPUSCULAR HGB CONC 31.1 g/dL (31-35); MEAN CORPUSCULAR VOLUME 89.7 fL (81-99); MONOCYTES # (AUTO) 1.4 (0.2-0.8); MONOCYTES % 9.3 % (4.4-11.3); NEUTROPHILS # (AUTO) 10.8 (2.1-6.9); NEUTROPHILS % 74.3 % (38.7-80.0); PLATELET COUNT 447 x10e3/uL (140-360); RED BLOOD COUNT 3.19 x10e6/uL (3.6-5.1); RED CELL DISTRIBUTION WIDTH 14.6 % (11.7-14.4); WHITE BLOOD COUNT 14.48 x10e3/uL (4.8-10.8)
[2024-05-26 08:04] LABS: ALBUMIN 2.8 g/dL (3.5-5.0); ALBUMIN/GLOBULIN RATIO 0.8 (0.8-2.0); ANION GAP 14.7 mmol/L (8-16); BILIRUBIN,TOTAL 0.3 mg/dL (0.2-1.2); CALCIUM 8.3 mg/dL (8.4-10.2); CREATININE, SERUM 0.71 mg/dL (0.57-1.11); POTASSIUM 3.7 mmol/L (3.5-5.1); TOTAL PROTEIN 6.2 g/dL (6.5-8.1)
[2024-05-26] MEDS: ASPIRIN 325 MG TAB PO SCH (08:05)
[2024-05-26] MEDS: CLOPIDOGREL BISULFATE 75 MG TAB PO SCH (08:06)
[2024-05-26] MEDS: VANCOMYCIN 1.25GM/250 ML (PEG) 250 ML IV SCH (18:05)
[2024-05-27] VITALS (10 sets, daily range): BP systolic 114–125; BP diastolic 58–71; PULSE 72–87; RESP 16–20; TEMP 97.6–99.2; O2SAT 95–98
[2024-05-27] MEDS: ASPIRIN 81 MG CHEW TAB PO SCH (08:53)
[2024-05-27] MEDS: CARVEDILOL 3.125 MG TAB PO SCH (08:53)
[2024-05-27] MEDS: ATORVASTATIN 40 MG TAB PO SCH (21:12)
[2024-05-28] VITALS (11 sets, daily range): BP systolic 124–157; BP diastolic 67–89; PULSE 53–84; RESP 16–20; TEMP 97.4–98.5; O2SAT 95–98
[2024-05-28] MEDS: SODIUM CHLORIDE 0.9% 1000ML 1,000 ML ONE (07:39)
[2024-05-28] MEDS: NITROGLYCERIN/D5W 200 MCG/ML 250 ML ONE (07:39)
[2024-05-28] MEDS: VERAPAMIL HCL 2.5 MG/ML 2 ML VIAL ONE (07:39)
[2024-05-28] MEDS: HEPARIN SOD (PORCINE) 1000 UNIT/ML 30ML ONE (07:39)
[2024-05-28] MEDS: LIDOCAINE HCL 2% LOCAL 20 ML VIAL ONE (07:39)
[2024-05-28] MEDS: HEPARIN SOD/SOD CHLORIDE 2,000 ML ONE (07:39)
[2024-05-28] MEDS: MIDAZOLAM HCL 2 MG/2 ML VIAL ONE ×2 (07:40)
[2024-05-28] MEDS: ASPIRIN 325 MG TAB ONE (07:40)
[2024-05-28] MEDS: FENTANYL CITRATE/PF 100MCG/2 ML INJ ONE (07:40)
[2024-05-28] MEDS: IOPAMIDOL 370 MG/ML 100 ML INFUS..BTL INJ ONE (07:40)
[2024-05-28] MEDS: CLOPIDOGREL BISULFATE 75 MG TAB ONE (07:40)
[2024-05-28] MEDS ORDERED: LIDOCAINE HCL 2% LOCAL INJ 5 ML SDV VIAL INJ ONE (11:43)
[2024-05-28] MEDS ORDERED: FENTANYL CITRATE/PF 100MCG/2 ML INJ ONE (11:43)
[2024-05-28] MEDS ORDERED: PROPOFOL IV EMULSION 10 MG/ML 20 ML VIAL ONE (11:43)
[2024-05-28] MEDS ORDERED: MIDAZOLAM HCL 2 MG/2 ML VIAL ONE (11:43)
[2024-05-28] MEDS ORDERED: ETOMIDATE 40 MG/ 20ML VIAL IV ONE (12:20)
[2024-05-28] MEDS ORDERED: PHENYLEPHRINE HCL 1% 10 MG/ML VIAL ONE (12:37)
[2024-05-28] MEDS ORDERED: ONDANSETRON HCL INJ 2MG/ML 2ML 2 MG/ML VIAL ONE (13:08)
[2024-05-29] VITALS (9 sets, daily range): BP systolic 112–139; BP diastolic 55–82; PULSE 8–98; RESP 16–18; TEMP 98–98.5; O2SAT 95–100
[2024-05-29 10:07] LABS: BASOPHILS # (AUTO) 0.1 (0.0-0.1); BASOPHILS % 0.8 % (0.0-1.0); EOSINOPHILS # (AUTO) 0.5 (0.0-0.4); EOSINOPHILS % 3.5 % (0.0-6.0); HEMATOCRIT 27.7 % (34.2-44.1); HEMOGLOBIN 8.4 g/dL (12.0-16.0); LYMPHOCYTES # (AUTO) 2.5 (1.0-3.2); LYMPHOCYTES % 17.1 % (18.0-39.1); MEAN CORPUSCULAR HEMOGLOBIN 28.1 pg (28-32); MEAN CORPUSCULAR HGB CONC 30.3 g/dL (31-35); MEAN CORPUSCULAR VOLUME 92.6 fL (81-99); MONOCYTES # (AUTO) 1.1 (0.2-0.8); MONOCYTES % 7.8 % (4.4-11.3); NEUTROPHILS # (AUTO) 10.1 (2.1-6.9); NEUTROPHILS % 69.4 % (38.7-80.0); PLATELET COUNT 499 x10e3/uL (140-360); RED BLOOD COUNT 2.99 x10e6/uL (3.6-5.1); RED CELL DISTRIBUTION WIDTH 15.2 % (11.7-14.4); WHITE BLOOD COUNT 14.53 x10e3/uL (4.8-10.8)
[2024-05-29 10:23] LABS: ANION GAP 12.4 mmol/L (8-16); CALCIUM 8.1 mg/dL (8.4-10.2); CREATININE, SERUM 0.73 mg/dL (0.57-1.11)
[2024-05-29 10:24] LABS: POTASSIUM 3.4 mmol/L (3.5-5.1)
[2024-05-29] MEDS: PROMETHAZINE 12.5MG/ NACL 0.9% 12.5 MG/50 ML BAG IV PRN (12:14)
[2024-05-29] MEDS: CALCIUM CARBONATE 500 MG CHEWABLE TABS PO SCH (13:07)
[2024-05-29] MEDS: PANTOPRAZOLE SOD 40 MG TABEC PO SCH (13:08)
[2024-05-30] VITALS (9 sets, daily range): BP systolic 118–147; BP diastolic 62–85; PULSE 75–85; RESP 16–18; TEMP 97.9–98.6; O2SAT 96–100
[2024-05-30] MEDS: LOSARTAN POTASSIUM 100 MG TAB PO SCH (08:51)
[2024-05-30] MEDS: DOXYCYCLINE HYCLATE TABLET 100 MG TAB PO SCH (17:06)
[2024-05-31] VITALS (9 sets, daily range): BP systolic 130–149; BP diastolic 65–84; PULSE 73–86; RESP 16–22; TEMP 97.3–98.5; O2SAT 96–99
[2024-05-31] MEDS: CEFTRIAXONE 2 GM in SODIUM CHLORIDE 0.9% 100 ML IV SCH (08:47)
[2024-05-31] MEDS ORDERED: LOSARTAN POTASSIUM 100 MG TAB PO SCH (09:00)
[2024-06-01] VITALS (8 sets, daily range): BP systolic 134–154; BP diastolic 71–83; PULSE 70–91; RESP 16–20; TEMP 97.5–98.6; O2SAT 96–99
[2024-06-01] MEDS: CARVEDILOL 12.5 MG TAB PO SCH (09:00)
[2024-06-01] MEDS: FUROSEMIDE 20 MG TAB PO SCH (10:21)
[2024-06-01] MEDS ORDERED: OXYCODONE-ACET1 EAC6 PO (17:46)
[2024-06-01] MEDS ORDERED: ASPIRIN CHEW81 MG PO (17:46)
[2024-06-01] MEDS ORDERED: FUROSEMIDE20 MG PO (17:46)
[2024-06-01] MEDS ORDERED: COREG12.5 MG PO (17:46)
[2024-06-01] MEDS ORDERED: ATORVASTATIN CA40 MG PO (17:46)
[2024-06-01] MEDS ORDERED: TUMS200 MG PO (17:46)
[2024-06-01] MEDS ORDERED: PLAVIX75 MG PO (17:46)
[2024-06-01] MEDS ORDERED: COZAAR100 MG PO (17:46)
[2024-06-02] VITALS: BP 150/89; PULSE 96; RESP 18; TEMP 98.3; O2SAT 98
[2024-06-02 03:47] VITALS: BP 127/85; PULSE 88; RESP 18; TEMP 98.3; O2SAT 98
[2024-06-02 06:05] VITALS: PULSE 76; RESP 18; O2SAT 97
[2024-06-02 08:43] VITALS: BP 132/91; PULSE 89; RESP 18; TEMP 98.4; O2SAT 96
[2024-06-02 12:06] VITALS: BP 132/71; PULSE 73; RESP 18; TEMP 97.7; O2SAT 100
[2024-06-02] MEDS ORDERED: HYDROCODON-ACE1 EA11 PO (12:13)
[2024-06-02] MEDS: HYDROCODONE/APAP 5MG-325MG TAB PO ONE (12:17)
== END 2024-06-02 13:55 | disposition home or self-care (01) | DRG 854 ==
LOC: ER 18:04 → ERHOLD 19:28 → MED/SURG2 20:04
PROVIDERS: ADMIT Internal Medicine; ATTEND Internal Medicine
PROC: 3E0333Z Introduction of Anti-inflammatory into Peripheral Vein, Percutaneous Approach (ICD-10-PCS; principal; 2024-05-23)
PROC: 047L3DZ Dilation of Left Femoral Artery with Intraluminal Device, Percutaneous Approach (ICD-10-PCS; 2024-05-25)
PROC: 047Q3ZZ Dilation of Left Anterior Tibial Artery, Percutaneous Approach (ICD-10-PCS; 2024-05-25)
PROC: B41D1ZZ Fluoroscopy of Aorta and Bilateral Lower Extremity Arteries using Low Osmolar Contrast (ICD-10-PCS; 2024-05-25)
PROC: 0Y6Y0Z0 Detachment at Left 5th Toe, Complete, Open Approach (ICD-10-PCS; 2024-05-28)
PROC: 02HV33Z Insertion of Infusion Device into Superior Vena Cava, Percutaneous Approach (ICD-10-PCS; 2024-05-29)
DX: A41.9 Sepsis, unspecified organism (principal); E11.52 Type 2 diabetes mellitus with diabetic peripheral angiopathy with gangrene; I70.262 Atherosclerosis of native arteries of extremities with gangrene, left leg; E87.20 Acidosis, unspecified; I70.92 Chronic total occlusion of artery of the extremities; I11.0 Hypertensive heart disease with heart failure; I50.22 Chronic systolic (congestive) heart failure; N17.9 Acute kidney failure, unspecified; E11.621 Type 2 diabetes mellitus with foot ulcer; L97.528 Non-pressure chronic ulcer of other part of left foot with other specified severity; M86.172 Other acute osteomyelitis, left ankle and foot; R65.20 Severe sepsis without septic shock; D64.9 Anemia, unspecified; L03.032 Cellulitis of left toe; E11.42 Type 2 diabetes mellitus with diabetic polyneuropathy; I25.10 Atherosclerotic heart disease of native coronary artery without angina pectoris; J44.9 Chronic obstructive pulmonary disease, unspecified; E78.00 Pure hypercholesterolemia, unspecified; I25.82 Chronic total occlusion of coronary artery; R53.81 Other malaise; E66.9 Obesity, unspecified; Z68.33 Body mass index [BMI] 33.0-33.9, adult; Z79.85 Long-term (current) use of injectable non-insulin antidiabetic drugs; Z79.84 Long term (current) use of oral hypoglycemic drugs; Z86.14 Personal history of Methicillin resistant Staphylococcus aureus infection; Z90.49 Acquired absence of other specified parts of digestive tract; Z90.710 Acquired absence of both cervix and uterus; F17.210 Nicotine dependence, cigarettes, uncomplicated; Z82.49 Family history of ischemic heart disease and other diseases of the circulatory system
CPT/HCPCS: 36246; 36415; 36569; 37226; 37228; 71045; 75625; 75710; 75736; 76000; 76937; 80048; 80053; 80061; 80202; 82948; 83036; 83605; 84443; 85025; 85610; 87040; 87071; 87086; 87205; 88304; 88311; 93005; 93306; 93454; 93925; 94799; 97606; 99152; 99153; 99252; 99284; C1725; C1760; C1769; C1876; C1887; C1894; J0696; J1644; J2003; J2250; J2270; J2371; J2405; J2543; J2550; J3370; J7030; J7050; Q9967

== ENCOUNTER → 2024-11-23 | Day surgery (SDC) | payer BC ==
[2024-11-21 14:59] LABS: BASOPHILS % 1.1 % (0.0-1.0); EOSINOPHILS % 7.9 % (0.0-6.0); LYMPHOCYTES % 21.4 % (18.0-39.1); MONOCYTES % 6.6 % (4.4-11.3); NEUTROPHILS % 62.4 % (38.7-80.0); RED CELL DISTRIBUTION WIDTH 14.8 % (11.7-14.4)
[2024-11-21 15:19] LABS: EST GLOMERULAR FILTRATION RATE 34.0 ML/MIN (>=60)
[~2024-11-23] MED LIST changes: +ASPIRIN CHEW81 MG PO; +ATIVAN0.5 MG PO; +ATORVASTATIN CA40 MG PO; +CELEBREX200 MG PO; +COREG12.5 MG PO; +COZAAR100 MG PO; +FAMOTIDINE 20 MG/2 ML VIAL IV ONE; +FARXIGA10 MG PO; +FENTANYL CITRATE/PF 100MCG/2 ML INJ ONE; +FUROSEMIDE20 MG PO; +GLIMEPIRIDE4 MG PO; +HYDROCODON-ACE1 EA11 PO; +LIDOCAINE HCL 2% LOCAL INJ 5 ML SDV VIAL INJ ONE; +METOCLOPRAMIDE HCL 10 MG/2ML VIAL ONE; +ONDANSETRON HCL INJ 2MG/ML 2ML 2 MG/ML VIAL ONE; +ONDANSETRON ODT8 MG PO; +OXYCODONE-ACET1 EAC6 PO; +PANTOPRAZOLE SO40 MG PO; +PLAVIX75 MG PO; +PROPOFOL IV EMULSION 10 MG/ML 20 ML VIAL ONE; +RIVAROXABAN PO; +SEVOFLURANE INHAL SOLN 250 ML PEN BTL ONE; +TUMS200 MG PO
[2024-11-23] MEDS: LACTATED RINGER'S 1,000 ML ONE (06:12)
[2024-11-23 09:40] VITALS: BP 140/63; PULSE 71; RESP 16; O2SAT 98
== END | disposition home or self-care (01) ==
LOC: OR 05:15
PROVIDERS: ATTEND Podiatrist Foot Surgery
DX: E11.621 Type 2 diabetes mellitus with foot ulcer (principal); L97.526 Non-pressure chronic ulcer of other part of left foot with bone involvement without evidence of necrosis; E11.69 Type 2 diabetes mellitus with other specified complication; M86.9 Osteomyelitis, unspecified; E11.40 Type 2 diabetes mellitus with diabetic neuropathy, unspecified; E11.51 Type 2 diabetes mellitus with diabetic peripheral angiopathy without gangrene; I25.10 Atherosclerotic heart disease of native coronary artery without angina pectoris; I11.0 Hypertensive heart disease with heart failure; I50.42 Chronic combined systolic (congestive) and diastolic (congestive) heart failure; I25.5 Ischemic cardiomyopathy; E78.00 Pure hypercholesterolemia, unspecified; F17.210 Nicotine dependence, cigarettes, uncomplicated; G25.81 Restless legs syndrome; M19.90 Unspecified osteoarthritis, unspecified site; Z79.02 Long term (current) use of antithrombotics/antiplatelets; Z79.2 Long term (current) use of antibiotics; Z79.84 Long term (current) use of oral hypoglycemic drugs; Z01.810 Encounter for preprocedural cardiovascular examination; Z01.812 Encounter for preprocedural laboratory examination; Z68.33 Body mass index [BMI] 33.0-33.9, adult
CPT/HCPCS: 15004; 15275; 36415 ×2; 80048; 82948; 85025; 93005; J0690; J1308; J2003; J2405; J2704; J2765; J3010; J7121; Q4104